=== PATIENT | female | born 2000 | race Asian ===

== ENCOUNTER 2019-10-26 16:42 | Inpatient (IN) ==
[2019-10-26 17:53] LABS: Appearance Urine Cloudy (Clear); Bacteria Urine Automated Negative (Negative); Bilirubin Urine Negative (Negative); Blood Urine Negative (Negative); Cast Urine Automated 0 /lpf (0-5); Color Urine Yellow; Glucose Urine UA Negative (Negative); Ketones Urine Negative (Negative); Leukocyte Esterase Urine Negative (Negative); Nitrite Urine Negative (Negative); Protein Urine Negative (Negative); RBC Urine Automated 0-4 /hpf (0-4); Specific Gravity Urine 1.011 (1.000-1.030); Urobilinogen Urine Negative (Negative); pH Urine 8.5 (4.5-7.5)
[2019-10-26 18:12] LABS: Eosinophils # (auto) 0.02 K/uL (0-0.5); Eosinophils % (auto) 0.3 %; Hematocrit (blood only) 40.4 % (37-47); Hemoglobin 13.3 g/dL (12.0-16.0); Immature Granulocytes # (auto) 0.01 K/uL (0.00-0.02); Immature Granulocytes % (auto) 0.1 %; Lymphocytes # (auto) 1.63 K/uL (1.2-3.4); Lymphocytes % (auto) 22.9 %; Mean Corpuscular Hemoglobin 29.5 pg (25-34); Mean Corpuscular Hgb Conc 32.9 g/dL (32-36); Mean Corpuscular Volume 89.6 fL (80-100); Mean Platelet Volume 10.8 fL (7.4-10.4); Monocytes # (auto) 0.35 K/uL (0.11-0.59); Monocytes % (auto) 4.9 %; Neutrophils # (auto) 5.11 K/uL (1.4-6.5); Neutrophils % (auto) 71.8 %; Platelet Count 327 K/uL (130-400); RDW Coefficient of Variation 12.9 % (11.5-14.5); RDW Standard Deviation 42.2 fL (36.4-46.3); Red Blood Count 4.51 M/uL (4.2-5.4); White Blood Count 7.12 K/uL (4.8-10.8)
[2019-10-26 18:21] LABS: Amphetamines+Metham, Urine Neg (Neg); Barbiturates, Urine Neg (Neg); Benzodiazepine, Urine Neg (Neg); Cocaine, Urine Neg (Neg); MDMA (Ecstacy), Urine Neg (Neg); Methadone, Urine Neg (Neg); Opiate, Urine Neg (Neg); Phencyclidine, Urine Neg (Neg)
[2019-10-26 18:27] LABS: Pregnancy Test, Serum Negative (Negative)
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
[2019-10-26 18:40] LABS: Albumin Level 4.1 gm/dl (3.4-5.0); BUN Creatinine Ratio 11.7 (10-20); Calcium 9.2 mg/dl (8.5-10.1); Creatinine Clr Calc Pharmacy 85.3 ml/min; Est GFR (African American) 138.7; Est GFR (Non-African American) 119.7; Potassium 3.4 mmol/L (3.5-5.1)
[2019-10-26 18:51] LABS: Albumin Globulin Ratio 1.1 (0.9-2); Bilirubin,Total 0.3 mg/dl (0.2-1); Globulin 3.7 gm/dl (2.5-4.0); Thyroid Stimulating Hormone 0.287 uIu/ml (0.300-4.500); Total Protein 7.8 gm/dl (6.4-8.2)
[2019-10-26 19:03] LABS: T4 Free Thyroxine 1.2 ng/dl (0.8-1.6)
[2019-10-26 19:11] LABS: Acetaminophen < 2 ug/ml (10-30); Salicylate < 1.7 mg/dl (2.8-20)
[2019-10-26] MEDS ORDERED: ALPRAZolam 0.5 MG TABLET PO STA (19:22)
[2019-10-26] MEDS ORDERED: SODIUM CHLORIDE 0.65% NA SOLN 45 ML (OCEAN) PRN (22:57)
[2019-10-26] MEDS ORDERED: ACETAMINOPHEN 325 MG TAB PO PRN (22:57)
[2019-10-26] MEDS ORDERED: MAGNESIUM HYDROXIDE SUSP 30 ML UDC PO PRN (22:57)
[2019-10-26] MEDS ORDERED: BISMUTH SUBSALICYLATE PER ML OMNICELL CHARGE PO PRN (22:57)
[2019-10-26] MEDS ORDERED: ALUMINUM/MAGNESIUM SUSP 30 ML UDC PO PRN (22:57)
[2019-10-26] MEDS ORDERED: ALPRAZolam 0.5 MG TABLET PO PRN (23:06)
[2019-10-27] MEDS ORDERED: NON-FORMULARY PATIENT'S OWN MED PO SCH (09:00)
[2019-10-27] MEDS: ESCITALOPRAM OXALATE 20 MG TAB PO SCH (09:07)
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
[2019-10-28] MEDS: ESCITALOPRAM OXALATE 20 MG TAB PO SCH (08:53)
--- NOTE | 2019-10-28 13:00 | Psychiatric Progress Note ---
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 She has a history of cutting, but has not returned to that coping skill in about a year, despite urges to cut. She had admitted with suicidal thoughts and inability to contract for safety outside of the hospital. She would like to work on improving her coping skills, and although her current medication regimen has been helpful, she has been poorly adherent to it over the past month, which also likely contributed to decompensation. She is denying active SI presently, and is planning to have a close friend involved in a support meeting this afternoon. Inpatient treatment is medically necessary due to the severity of her symptoms and risk for suicide if discharged. (1) Suicidal ideation: 10/27 -continue voluntary inpatient treatment. -15-minute checks for safety. -Encourage group attendance and participation. -Work on healthy coping skills and discharge safety plan. -She does not want to involve her family, but consider a meeting with her friends, who are her biggest supports locally. -Coordinate care with her therapist and psychiatrist. 10/28 - Pt denies active SI today - Support meeting this afternoon to discuss safety and discharge planning (2) PTSD (post-traumatic stress disorder): 10/27 -continue escitalopram 20 mg daily, which the patient tolerates well and reports has been effective. Continue to provide education about the importance of taking medication daily in order for her to be maximally beneficial, as she has been poorly adherent with medication over the past month. 10/28 - Continue to encourage medication compliance while working through trauma history with outpatient therapist (3) Generalized anxiety disorder: 10/27 -with panic attacks. Resume SSRI as above, and continue home dose of alprazolam 0.5 mg 3 times daily as needed for panic attacks. -Work on behavioral techniques for managing anxiety 10/28 - Reporting increased anxiety related to support meeting this afternoon - Continue to encourage development of healthy and effective coping betty lerner (4) ADHD: 10/27 -Vyvanse is nonformulary, but patient indicates she will not need it here as she is not studying. Risk Factors Assessment Male: No : No Do You Have Access To A Gun?: No Health Problems: No Mental Health Diagnoses: Yes Substance Use Disorders: No Previous Attempt: No Family History of Suicide: No Previous Psychiatric Hospitalization: No Hopelessness: Yes Smoker: No Protective Factors Assessment : No Responsible for Young Children: No Employed: No Stable Relationships: Yes Supportive Family: No Good Rapport with Provider: Yes Interval History Identifying Information JUAN CARLOS CHARLES is a 19-year-old F [employer] student from [facility] who currently lives in [place], has a history of anxiety, PTSD, and ADHD, and was admitted on 10/26/19 22:56 on a 201 voluntary commitment for anxiety and suicidal ideation with thoughts to cut herself. Chief Complaint "My heart is beating so fast." Review of Systems Notes Constitutional: denied Cardiovascular: reports rapid heart beat related to anxiety Respiratory: denied Gastrointestinal: denied Neurological: denied Psychiatric: denies symptoms other than stated above Total of at least 10 systems reviewed, pertinent positives as above and in HPI. Sleep Information Total Hours of Sleep: 6.5 Sleep Comments: pt on q-15 minute checks Meal Information Percent Meal Consumed - Breakfast: 50 Percent Meal Consumed - Lunch: 50 Percent Meal Consumed - Dinner: 90 Subjective Subjective Patient was seen & assessed and interval progress reviewed with treatment team. Staff report the patient has a meeting with a close friend this afternoon. Pt reported improvement in symptoms last evening, rating her mood an 8/10 and "neutral, good, and less anxious." Pt was seen today to assess progress since admission. She provides verbal consent to allow Atiya Charles PA-C to observe today's encounter. Pt states that she is feeling anxious presently, as she is nervous about her support meeting this afternoon - "my heart is beating so fast." Pt states that although this individual has supported her through panic attacks, she is worried about having to tell him "about all the other stuff" stating "he doesn't know about the history of background of everything." We reviewed that patient can share as she feels comfortable about her history, and that social sciences department chair will be there to support her in the meeting. Otherwise, the patient states that she has been noticing improvement in her symptoms over the course of her admission. She denies side effects related to resuming her home medication regimen. Pt states that she feels group programming has been helpful and she is hoping to continue to developing additional coping strategies. Pt denies active SI at this time. She denies other needs or concerns today. Physical Exam Psychiatric Orientation: alert and oriented x 3 Apperance: appropriately dressed, + disheveled (hair appearing unkempt) and appe ared stated age Eye Contact: good eye contact Motor Behavior: steady gait and station and no abnormal motor movements Speech: normal rate/rhythm/volume of speech Affect: + depressed affect and + anxious affect Mood: + depressed mood and + anxious mood ("my heart is beating so fast") Thought Process: goal directed thought process, clear/coherent thought process and thought association intact Thought Content: reality based without delusions; no hopelessness Suicidal Thoughts: denies suicidal thoughts and denies suicidal intent Homicidal Thoughts: denies homicidal thoughts Hallucinations: no auditory hallucinations and no visual hallucinations Cognition: remote memory grossly intact, attention grossly intact and language grossly intact Insight: + fair insight Judgement: + fair judgement Vital Signs (Past 24 Hours) Last Vital Signs Temp 36.5 C 10/28/19 07:00 Pulse 81 10/28/19 07:01 Resp 18 10/28/19 07:00 BP 107/76 10/28/19 07:01 Pulse Ox 98 10/26/19 23:59 Results & Data Current Inpatient Medications Current Inpatient Medications: Current Inpatient Medications Acetaminophen (Tylenol) 650 mg PO Q4H PRN PRN Reason: Headache or Minor Fever Stop: 11/25/19 22:56 Al Hydrox/Mg Hydrox/Simethicone (Maalox) 30 ml PO Q4H PRN PRN Reason: GI Upset Stop: 11/25/19 22:56 Alprazolam (Xanax) 0.5 mg PO Q8H PRN PRN Reason: Anxiety Stop: 11/25/19 23:05 Bismuth Subsalicylate (Kaopectate) 15 ml PO PRN PRN PRN Reason: Loose Stool Stop: 11/25/19 22:56 Escitalopram Oxalate (Lexapro Tab) 20 mg PO QAM RICH Stop: 11/26/19 08:59 Last Admin: 10/28/19 08:53 Dose: 20 mg Documented by: Hydroxyzine HCl (Vistaril) 50 mg PO HSZ PRN PRN Reason: Insomnia Stop: 11/25/19 22:56 Hydroxyzine HCl (Vistaril) 25 mg PO Q4H PRN PRN Reason: Anxiety Stop: 11/25/19 22:56 Magnesium Hydroxide (Milk Of Magnesia) 30 ml PO DAILY PRN PRN Reason: Constipation Stop: 11/25/19 22:56 Miscellaneous (Order Awaiting Action) 1 ea N/A QS RICH Stop: 11/26/19 07:59 Last Admin: 10/28/19 01:33 Dose: Not Given Documented by: Sodium Chloride ([place] Nasal) 1 - 2 sprays NA PRN PRN PRN Reason: Nasal Dryness/Congestion Stop: 11/25/19 22:56 Mental Health & Subst Abuse Tx Psychiatrist Name of Psychiatrist: Dr. Wilder Psychiatrist's Psychiatric Appointment Comment: [address], [place] [address] Therapist Name of Therapist: Hoda Smyth LCSW Therapist's Date of Therapist Appointment: 11/05/19 Therapy Appointment Comment: [facility], [address] [facility] [address], [place] [address] Flight Operations Specialist Name of Flight Operations Specialist: [facility] Phone Number for Flight Operations Specialist: [phone] Date of Appointment with Flight Operations Specialist: 10/30/19 Time of Appointment with Flight Operations Specialist: 11:00 a.m. Case Management Appointment Comment: [address] Post Discharge Appointments Primary Care Physician Name Of Family Doctor: [facility] Primary Care Time of Appointment with PCP: Please follow up as needed Provider Appointment Comment: [facility] Contact Information Discharge Discharge Address: [address], [place] [address]
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
[2019-10-29] MEDS: ESCITALOPRAM OXALATE 20 MG TAB PO SCH (09:14)
== END 2019-10-29 18:45 | disposition home or self-care (01) | DRG 880 ==
LOC: EDBD 16:45 → EDUNIT# 16:45 → ED 16:53 → 3S 22:45